=== PATIENT | male | born 1965 | race Caucasian/White ===

== ENCOUNTER 2018-05-19 13:58 | Emergency (ER) | payer OTHER ==
[2018-05-19] MEDS ORDERED: Diphtheria,Pertussis(Acell),Tetanus Vaccine 0.5 ML Syringe IM ONE (14:02)
[2018-05-19] MEDS ORDERED: Ketorolac 30 MG/ML SDV IVPUSH ONE (14:02)
[2018-05-19] MEDS ORDERED: Ondansetron 4 MG/2 ML SDV IVPUSH ONE (14:02)
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
[2018-05-19 14:48] LABS: CHLORIDE,CL 103 mmol/L (98-107); SODIUM,NA 136 mmol/L (136-148)
--- NOTE | 2018-05-19 14:57 | CT ---
EXAMINATION: Non contrast CT head. Coronal and sagittal reformats. HISTORY: Pain FINDINGS: No evidence of intra or extra axial hemorrhage, mass, midline shift, hydrocephalus or edema. No hypoattenuation changes in the major vascular territories to suggest acute infarct. No abnormal intracranial calcifications are detected. No evidence of substantial vascular calcificat ions. Mild mucosal thickening within the right maxillary sinus. Orbits and globes are symmetric. Pituitary fossa appears unremarkable. Calvarium is intact. No evidence of skull fracture. IMPRESSION: No acute intracranial findings.
--- NOTE | 2018-05-19 14:59 | CT ---
EXAMINATION: CT cervical spine HISTORY: Pain COMPARISON: None TECHNIQUE: Axial CT images obtained through the cervical spine without contrast. Coronal and sagittal reconstructions obtained. FINDINGS: The spinal alignment is normal. The vertebral body heights and disc spaces appear well-main tained. Bone mineralization appears normal. Mild marginal osteophytes and likely small osteophyte dis c complexes noted at C5-C6 and C6-C7. Paravertebral soft tissues appear normal. Moderate degenerative changes noted within the left temporomandibular joint. IMPRESSION: 1. Mild degenerative changes without acute findings.
--- NOTE | 2018-05-19 15:03 | CT ---
CT of the chest, abdomen and pelvis with contrast. HISTORY: Shortness of breath TECHNIQUE: Axial CT images were obtained of the chest, abdomen and pelvis following administration of Isovue-[id number] without complication. Coronal and sagittal reconstructions obtained. FINDINGS: Chest: The lungs are clear without focal consolidation. No pleural effusion or pneumothorax. The hear t is normal in size without a pericardial effusion. Thoracic aorta is normal in caliber. Main and yves tral pulmonary arteries are patent. Central airways are clear. No mediastinal, hilar, or axillary lym phadenopathy. Abdomen: The liver, spleen, adrenal glands, and pancreas appear normal. The gallbladder is normal. No bulky retroperitoneal lymphadenopathy or abdominal ascites. The kidneys enhance and function symmetrically without evidence of obstructive uropathy. Pelvis: The large and small bowel are normal in caliber without evidence of obstruction. No focal per icolonic inflammation or stranding. Minimal diverticulosis without evidence of diverticulitis. The ap pendix is normal. The urinary bladder is normal. Minimal fat-containing inguinal hernias. The urinary bladder is normal. No bulky pelvic lymphadenopathy or free pelvic fluid. No acute osseous abnormalities identified. Degenerative changes noted within the shoulders. Bone mine ralization is normal. IMPRESSION: 1. No acute findings noted within the chest, abdomen, or pelvis. 2. Minimal diverticulosis.
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
[2018-05-19] MEDS ORDERED: Iopamidol 755 Mg/ML 100 ML Bottle IVPUSH ONE (15:45)
== END 2018-05-19 16:20 | disposition home or self-care (01) ==
LOC: MW.ED 13:58
DX: S02.2XXA Fracture of nasal bones, initial encounter for closed fracture (principal); S20.219A Contusion of unspecified front wall of thorax, initial encounter; S80.11XA Contusion of right lower leg, initial encounter; Z23 Encounter for immunization; V59.40XA Driver of pick-up truck or van injured in collision with unspecified motor vehicles in traffic accident, initial encounter
CPT/HCPCS: 36415; 70450; 70486; 71260; 72125; 74177; 80053; 81001; 85025; 85610; 90471; 90715; 99284; Q9967